=== PATIENT | female | born 1980 | race African-American/Black ===

== ENCOUNTER 2022-10-07 07:47 | Emergency (ER) | payer BC ==
[~2022-10-07] VITALS: Ht 162.6 cm; Wt 79.4 kg
[2022-10-07] MEDS ORDERED: FLUCONAZOLE100 MG PO (08:04)
== END 2022-10-07 08:31 | disposition home or self-care (01) ==
LOC: ER 07:51
DX: B37.31 Acute candidiasis of vulva and vagina (principal); E78.5 Hyperlipidemia, unspecified
CPT/HCPCS: 99282

== ENCOUNTER 2024-05-16 14:06 | Emergency (ER) | payer BC, OTHER ==
[~2024-05-16] VITALS: Ht 165.1 cm; Wt 75.9 kg
[~2024-05-16 14:06] MED LIST: DIFLUCAN100 MG PO; DIFLUCAN150 MG PO; DOXYCYCLINE HY100 MG PO; FLUCONAZOLE100 MG PO; METRONIDAZOLE500 MG PO; ONDANSETRON ODT4 MG PO
[2024-05-16 14:20] VITALS: PULSE 87; RESP 18; TEMP 98.6; O2SAT 100
[2024-05-16] MEDS ORDERED: FLUCONAZOLE150 MG PO (15:22)
== END 2024-05-16 15:40 | disposition home or self-care (01) ==
LOC: FSED 14:10
DX: B37.31 Acute candidiasis of vulva and vagina (principal); E78.5 Hyperlipidemia, unspecified
CPT/HCPCS: 99284